=== PATIENT | female | born 1955 | race Caucasian/White ===

== ENCOUNTER 2021-02-23 07:50 | Outpatient (CLI) | payer MEDICAID ==
[2021-02-23 14:51] LABS: BASOPHILS % (AUTO) 0.7 %; EOSINOPHILS # (AUTO) 0.1 10^3/uL (0.0-0.7); EOSINOPHILS % (AUTO) 2.7 %; HCT - HEMATOCRIT 40.7 % (37.0-47.0); HGB - HEMOGLOBIN 13.1 g/dL (12.0-16.0); LYMPHOCYTES # (AUTO) 1.7 10^3/uL (1.5-3.5); LYMPHOCYTES % (AUTO) 41.1 %; MEAN CORPUSCULAR HEMOGLOBIN 29.5 pg (27.0-31.0); MEAN CORPUSCULAR HGB CONC 32.2 g/dL (32.0-36.0); MEAN CORPUSCULAR VOLUME 91.7 fL (81.0-99.0); MEAN PLATELET VOLUME 11.6 fL (7.9-10.8); MONOCYTES # (AUTO) 0.2 10^3/uL (0.0-1.0); MONOCYTES % (AUTO) 5.7 %; NEUTROPHILS % (AUTO) 49.3 %; PLT - PLATELET COUNT 299 10^3/uL (130-450); RED BLOOD COUNT 4.44 10^6/uL (4.20-5.40); RED CELL DISTRIBUTION WIDTH 13.4 % (12.0-15.0)
[2021-02-23 15:15] LABS: THYROID STIMULATING HORMONE 6.56 uIU/mL (0.34-5.60)
[2021-02-23 15:19] LABS: ALBUMIN 4.2 g/dL (3.2-5.5); ALBUMIN/GLOBULIN RATIO 1.3 (1.0-2.2); ALKALINE PHOSPHATASE 82 IU/L (42-121); ALT ALANINE AMINOTRANSFERASE 17 IU/L (10-60); AST ASPARTATE AMINOTRANSFERASE 28 IU/L (10-42); BILIRUBIN,TOTAL 0.7 mg/dL (0.2-1.0); BUN - BLOOD UREA NITROGEN 17 mg/dL (6-20); CALCIUM 9.2 mg/dL (8.5-10.3); CARBON DIOXIDE - CO2 27 mmol/L (21-32); CHLORIDE 103 mmol/L (101-111); CHOL/HDL RATIO 3.2 (<4.4); CHOLESTEROL 235 mg/dL; CREATININE 0.7 mg/dL (0.4-1.0); GFR - MDRD 84 (>89); GLUCOSE 103 mg/dL (70-100); HDL CHOLESTEROL 73 mg/dL; LDL CHOLESTEROL,CALCULATED 148 mg/dL; POTASSIUM 4.2 mmol/L (3.5-5.0); SODIUM 138 mmol/L (135-145); TOTAL PROTEIN 7.4 g/dL (6.7-8.2); TRIGLYCERIDES 72 mg/dL; VLDL CHOLESTEROL 14 mg/dL
[2021-02-23 15:52] LABS: FREE T4 (FREE THYROXINE) 0.68 ng/dL (0.58-1.64)
== END 2021-02-23 07:51 | disposition home or self-care (01) ==
LOC: LAB.S 07:50
PROVIDERS: ATTEND Registered Nurse
DX: Z00.00 Encounter for general adult medical examination without abnormal findings (principal); Z13.228 Encounter for screening for other metabolic disorders; Z13.220 Encounter for screening for lipoid disorders; Z13.29 Encounter for screening for other suspected endocrine disorder; Z13.0 Encounter for screening for diseases of the blood and blood-forming organs and certain disorders involving the immune mechanism
CPT/HCPCS: 36415; 80050; 80061; 83721; 84439; 86803

== ENCOUNTER 2021-02-24 08:00 | Outpatient (CLI) | payer MEDICAID ==
[2021-02-24 11:33] LABS: FECAL OCCULT BLOOD (FIT) NEGATIVE (NEGATIVE)
== END 2021-02-24 23:59 | disposition home or self-care (01) ==
LOC: LAB.S 08:00
PROVIDERS: ATTEND Registered Nurse
DX: Z12.11 Encounter for screening for malignant neoplasm of colon (principal)
CPT/HCPCS: 82274

== ENCOUNTER 2021-04-18 07:59 | Day surgery (SDC) | payer MEDICAID ==
[2021-04-18] MEDS ORDERED: LACTATED RINGERS 1,000 ML IV ONE ×2 (08:36→12:16)
[2021-04-18] MEDS ORDERED: LIDOCAINE 2%-EPI 1:100000 20 ML MDV ONE (09:59)
[2021-04-18] MEDS ORDERED: BUPIVACAINE 0.5% PF 10 ML VIAL ONE (09:59)
[2021-04-18] MEDS ORDERED: LIDOCAINE-MPF 2% 5 ML VIAL ONE (10:03)
[2021-04-18] MEDS ORDERED: PROPOFOL 200 MG/20 ML VIAL IVP ONE (10:03)
[2021-04-18] MEDS ORDERED: fentaNYL 100 MCG/2 ML VIAL ONE ×2 (10:04→11:35)
[2021-04-18] MEDS ORDERED: ONDANSETRON 4 MG/2 ML VIAL ONE (10:04)
[2021-04-18] MEDS ORDERED: KETOROLAC 30 MG/ML VIAL ONE (10:04)
[2021-04-18] MEDS ORDERED: DEXAMETHASONE 4 MG/ML VIAL ONE (10:04)
[2021-04-18] MEDS ORDERED: METOCLOPRAMIDE 10 MG/2 ML VIAL IVP PRN (10:31)
[2021-04-18] MEDS ORDERED: ATROPINE ABBOJECT 1 MG/10 ML SYRINGE IVP PRN (10:31)
[2021-04-18] MEDS ORDERED: MORPHINE 2 MG/ML CARPUJECT IVP PRN (10:31)
[2021-04-18] MEDS ORDERED: ePHEDrine 50 MG/ML VIAL IVP PRN (10:31)
[2021-04-18] MEDS ORDERED: NALOXONE 0.4 MG/ML VIAL IVP PRN (10:31)
[2021-04-18] MEDS ORDERED: ONDANSETRON 4 MG/2 ML VIAL IVP PRN ×2 (10:31→12:21)
[2021-04-18] MEDS ORDERED: fentaNYL 100 MCG/2 ML VIAL IVP PRN (10:31)
--- NOTE | 2021-04-18 10:35 | ANESTHESIA ---
Pre-Anesthesia VS, & Labs - Diagnosis left breast DCIS - Procedure Left skin sparing mastectomy Vital Signs: Temp Pulse Resp BP Pulse Ox 36.4 C L 79 12 135/87 H 97 04/18/21 08:15 04/18/21 08:15 04/18/21 08:15 04/18/21 08:15 04/18/21 08:15 Height: 5 ft 2 in Weight (kg): 64.3 kg Body Mass Index: 25.9 BMI Classification: Overweight - NPO >8 hours - Is Patient ?: No - Lab Results Lab results reviewed: Yes Home Medications and Allergies Home Medications: Ambulatory Orders Cholecalciferol (Vitamin D3) [Vitamin D3] 50 mcg PO DAILY 04/14/21 Multivitamin 1 tab PO DAILY 04/14/21 Active Medications Atropine Sulfate (Atropine Abboject 1 Mg/10 Ml Syringe) 0.5 mg IVP Q5M PRN PRN Reason: Bradycardia Stop: 04/19/21 10:32 Ephedrine Sulfate (Ephedrine 50 Mg/Ml Vial) 10 mg IVP Q5M PRN PRN Reason: HYPOTENSION Stop: 04/19/21 10:32 Fentanyl (Fentanyl 100 Mcg/2 Ml Vial) 25 - 50 mcg IVP Q5M PRN PRN Reason: BREAKTHROUGH PAIN (2nd Choice) Stop: 04/19/21 10:32 Hydromorphone HCl (Hydromorphone 0.5 Mg/0.5 Ml Syringe) 0.2 - 0.6 mg IVP Q5M PRN PRN Reason: PAIN (First Choice) Stop: 04/19/21 10:32 Lactated Ringer's (Lr) 1,000 mls @ 100 mls/hr IV .Q10H KARO Stop: 04/18/21 20:59 Metoclopramide HCl (Metoclopramide 10 Mg/2 Ml Vial) 10 mg IVP Q6HR PRN PRN Reason: N/V not relieved by Zofran Morphine Sulfate (Morphine 2 Mg/Ml Carpuject) 2 - 4 mg IVP Q5M PRN PRN Reason: PAIN (3rd Choice) Stop: 04/19/21 10:32 Naloxone HCl (Naloxone 0.4 Mg/Ml Vial) 0.1 mg IVP Q2M PRN PRN Reason: RESP RATE <8 Stop: 04/19/21 10:32 Ondansetron HCl (Ondansetron 4 Mg/2 Ml Vial) 4 mg IVP ONCE PRN PRN Reason: N/V (First Choice) Stop: 04/19/21 10:32 Scopolamine HBr (Scopolamine Patch) 1 patch TOP Q3D [facility] Cholecalciferol (Vitamin D3) [Vitamin D3] 50 mcg PO DAILY 04/14/21 Multivitamin 1 tab PO DAILY 04/14/21 Allergies/Adverse Reactions: Allergies Allergy/AdvReac Type Severity Reaction Status Date / Time aspirin AdvReac Hives Verified 04/14/21 10:50 Penicillins AdvReac Hives Verified 04/14/21 10:50 Anes History & Medical History - Anesthetic History Anesthesia Complications: reports: No previous complications Family history of Anesthesia Complications: Denies Family history of Malignant Hyperthermia: Denies - Medical History Cardiovascular: reports: None Pulmonary: reports: None Gastrointestinal: reports: None Urinary: reports: None Musculoskeletal: reports: None Endocrine/Autoimmune: reports: None Skin: reports: Rosacea Smoking Status: Never smoker - Surgical History General: reports: Colonoscopy Gynecologic: reports: section Orthopedic: reports: Carpal Tunnel surgery Exam General: Alert, Oriented x3, Cooperative, Mild distress (tearful) Dental: WNL Mouth Openin Fingerbreadth Neck Mobility: Normal Mallampati classification: II Plan Anesthesia Type: General Consent for Procedure(s) Verified and Reviewed: Yes Code Status: Attempt Resuscitation ASA classification: 2-Mild systemic disease Is this case an emergency?: No
[2021-04-18] MEDS ORDERED: SCOPOLAMINE PATCH TOP ONE (10:41)
[2021-04-18] MEDS ORDERED: MIDAZOLAM 2 MG/2 ML VIAL ONE (10:45)
--- NOTE | 2021-04-18 10:54 | Nuclear Medicine Report ---
PROCEDURE: Lymph Node Scintigraphy INDICATIONS: LEFT BREAST CA RADIOPHARMACEUTICAL: 0.5-1.0 mCi Millipore filtered Tc-99m sulfur colloid. TECHNIQUE: The area around the nipple was prepped and draped in a sterile fashion. Tc-99m sulfur colloid was in jected intra-dermally in the outer edge of the areola in the left breast. Images were obtained subse quently. A body contour outline was obtained. FINDINGS: There are a couple of lymph nodes in the ipsilateral axilla, which is marked on the skin and the imag es for referring physician. IMPRESSION: A couple of sentinel lymph nodes are identified in the left axilla. Reviewed by: Odilia Renee MD on 04/18/2021 10:53 AM PST Approved by: Odilia Renee MD on 04/18/2021 10:53 AM PST Station ID: [id number]
[2021-04-18] MEDS ORDERED: SCOPOLAMINE PATCH TOP SCH (11:00)
[2021-04-18] MEDS ORDERED: LACTATED RINGERS 1,000 ML IV SCH (11:00)
[2021-04-18] MEDS ORDERED: ceFAZolin 1 GM VIAL ONE (11:07)
[2021-04-18] MEDS ORDERED: BUPIVACAINE 0.5% PF 10 ML VIAL SUBQ ONE (11:10)
[2021-04-18] MEDS ORDERED: LIDOCAINE 1%-EPI 1:100000 20 ML MDV SUBQ ONE (11:11)
[2021-04-18] MEDS ORDERED: ePHEDrine 50 MG/ML VIAL IVP ONE (11:48)
--- NOTE | 2021-04-18 12:18 | OPERATIVE REPORT ---
Operative Report - General Procedure Date: 04/18/21 Planned Procedure: Left total mastectomy and sentinel node biopsy Pre-Op Diagnosis: Left breast DCIS Procedure Performed: Left breast total mastectomy and sentinel node biopsy Post Op Diagnosis: Left breast DCIS - Procedure Note Primary Surgeon: Celso Anesthesia Provider: SYLVESTER Dewey Anesthesia Technique: General LMA Pathology: 1. [place] node - 10 sec count [id number], background in axilla 21, background in room 0 2. Left breast with short stitch superior and long stitch lateral Estimated Blood Loss (mL): 150 Drain/Tube Type: Wero drain (19F in the inframmary pocket) Indications: 11 cm left breast DCIS Findings: A single sentinel node Venous congestion of the skin of the breast Complications: None apparent - Other Other Information/Narrative: After obtaining informed consent, the patient was brought to the operating room and placed in the supine position on the operating table. Following successful induction of general endotracheal anesthesia, appropriate padding of all bony prominences, and placement of appropriate monitors, the left breast was prepped and draped in the standard surgical fashion. A timeout was held per scope protocol. All elements of the surgical safety checklist were followed before, during, and after the procedure. We began the procedure with a sentinel node dissection. The neoprobe was used to identify the site of greatest uptake at level 2 in the patient's left axilla. An incision was created over this area of uptake and carried through the skin and subcutaneous tissue to enter the axillary node packet. The sentinel node was identified. It was noted to be grossly normal in appearance. It was carefully dissected free from surrounding structures sharply. All lymphatics and vasculature were addressed with clips prior to division. The node was liberated into the field. 10-second counts are recorded. Survey of the axilla did not identify any additional targets and this is consistent with nuclear medicine images. Background in the axilla was checked and found to be 21-27. Background in the room was 0. We turned our attention to the breast and began the procedure by infiltrating half percent Marcaine plain mixed 1/2 and 1/2 with 2% lidoaine with epinephrine in the subareolare region. An incision was fashioned to include the skin of the nipple only. This incision was then completed with a 10 blade scalpel. It was carried through the skin and subcutaneous tissue. Traction and countertraction were then used to divide the underlying breast tissue from the overlying dermis from the level of the incision to the clavicle superiorly medially to the sternum inferiorly to the inframammary fold and lateral to the posterior axillary line. Once a circumferential dissection had been obtained, the breast was removed in a medial to lateral fashion. All perforators were addressed with sutures or with cautery prior to division. The breast was then marked with a short stitch superior and a long stitch lateral. The wound was irrigated with warm water and aspirated free of all fluid and particulate m atter. It was checked once again for hemostasis and touched up in just a couple of places with cautery. A 19 Cuban Wero drain was placed in the inframammary pocket and brought out inferior medially. It was sewn into place. The skin edges were then closed in an interrupted fashion with Vicryl suture and vicryl clips applied to the subcutaneous tissue. A Proveena dressing was applied. All sponge, needle, instrument counts were correct at the conclusion the case. The patient was let awake from anesthesia without difficulty and taken to the postanesthesia care unit in good condition.
[2021-04-18] MEDS ORDERED: ACETAMINOPHEN 325 MG TABLET PO PRN (12:21)
[2021-04-18] MEDS ORDERED: IBUPROFEN 600 MG TABLET PO PRN (12:21)
[2021-04-18] MEDS ORDERED: oxyCODONE 5 MG TABLET PO PRN (12:21)
[2021-04-18] MEDS: HYDROmorphone 0.5 MG/0.5 ML SYRINGE IVP PRN ×2 (12:45→12:52)
--- NOTE | 2021-04-18 13:05 | ANESTHESIA POST OP EVALUATION ---
Anesthesia Post Eval - Post Anesthesia Eval Vitals: Last Vital Signs Temp 36.2 C L 04/18/21 13:00 Pulse 90 04/18/21 13:00 Resp 15 04/18/21 13:00 BP 117/72 04/18/21 13:00 Pulse Ox 99 04/18/21 13:00 CV Function Including HR & BP: Stable Pain Control: Satisfactory Nausea & Vomiting: Negative Mental Status: Baseline Respiratory Status: Airway Patent Hydration Status: Satisfactory Anesthesia Complications: None
[2021-04-18 15:06] VITALS: BP 139/86
== END 2021-04-18 08:00 | disposition home or self-care (01) ==
LOC: DI 07:59
PROVIDERS: ATTEND Surgery
PROC: 07B60ZX Excision of Left Axillary Lymphatic, Open Approach, Diagnostic (ICD-10-PCS; 2021-04-18)
PROC: 0HTU0ZZ Resection of Left Breast, Open Approach (ICD-10-PCS; principal; 2021-04-18 10:00)
DX: D05.12 Intraductal carcinoma in situ of left breast (principal)
CPT/HCPCS: 78195

== ENCOUNTER 2022-04-11 11:51 | Outpatient (CLI) | payer MEDICARE, MEDICAID ==
--- NOTE | 2022-04-11 16:05 | XRAY Report ---
PROCEDURE: Chest 2 View X-Ray INDICATIONS: BRONCHITIS TECHNIQUE: 2 views of the chest were acquired. COMPARISON: None. FINDINGS: Surgical changes and devices: None. Lungs and pleura: No pleural effusions or pneumothorax. Lungs are clear. Mediastinum: Mediastinal contours are normal. Heart size is normal. Bones and chest wall: No suspicious bony abnormalities. Soft tissues appear unremarkable. IMPRESSION: No acute cardiopulmonary disease process. Reviewed by: Lona Stafford MD, PhD on 04/11/2022 4:04 PM [facility] Approved by: Lona Stafford MD, PhD on 04/11/2022 4:04 PM [facility] Station ID: [id number]
== END 2022-04-11 11:52 | disposition home or self-care (01) ==
LOC: DI.S 11:51
PROVIDERS: ATTEND Physician Assistant Medical
DX: J20.9 Acute bronchitis, unspecified (principal)

== ENCOUNTER 2022-09-27 08:01 | Outpatient (CLI) | payer MEDICARE, MEDICAID ==
--- NOTE | 2022-10-09 12:00 | Mammography Report ---
UNILATERAL RIGHT DIGITAL SCREENING MAMMOGRAM 3D/2D: 09/27/2022 CLINICAL: Routine screening. Personal history of left breast cancer. Comparison is made to exams dated: 03/07/2021 breast MRI - [facility], 02/08/2021 stereotactic bi opsy, 02/08/2021 stereotactic biopsy, 01/26/2021 mammogram, 01/12/2021 mammogram - [facility] [place], and 12/08/2011 mammogram - [place]. There are scattered areas of fibroglandular density in the right breast (category b / 25%-50% glandul ar tissue). There is a cluster of focal asymmetries in the right breast at 11 o'clock posterior depth. No other significant masses or calcifications are seen in the breast. IMPRESSION: INCOMPLETE: NEEDS ADDITIONAL IMAGING EVALUATION The cluster of focal asymmetries in the right breast is indeterminate. Additional views with possibl e ultrasound are recommended. This exam was interpreted at Station ID: [id number]. NOTE: For mammograms, a report in lay terms will be sent to the patient. Approximately 15% of breast malignancies will not be visualized mammographically. In the management of a palpable breast mass, a negative mammogram must not discourage biopsy of a clinically suspicious lesion. Electronically Signed By: Costa Stewart M.D. lc/:10/06/2022 12:00:44 ACR BI-RADS Category 0: Incomplete 3340F PARENCHYMAL PATTERN: (A) - The breast(s) demonstrate(s) scattered fibroglandular densities. BI-RADS CATEGORY: (0) - 0 Mammo and [place] [id number] Immediate follow-up LATERALITY: (B)
== END 2022-09-27 08:02 | disposition home or self-care (01) ==
LOC: DI 08:01
PROVIDERS: ATTEND Nurse Practitioner Acute Care
DX: Z12.31 Encounter for screening mammogram for malignant neoplasm of breast (principal); Z85.3 Personal history of malignant neoplasm of breast; R92.8 Other abnormal and inconclusive findings on diagnostic imaging of breast

== ENCOUNTER 2022-11-01 08:07 | Outpatient (CLI) | payer MEDICARE, MEDICAID ==
--- NOTE | 2022-11-02 11:46 | Mammography Report ---
UNILATERAL RIGHT DIGITAL DIAGNOSTIC MAMMOGRAM 3D/2D WITH SPOT COMPRESSION: 11/01/2022 CLINICAL: Patient returns today to evaluate a focal asymmetry in the right breast. Comparison is made to exams dated: 09/27/2022 mammogram - [facility], 03/07/2021 [facility], 02/08/2021 stereotactic biopsy, and 01/26/2021 mammogram - [facility]. There are scattered areas of fibroglandular density in the right breast (category b / 25%-50% glandul ar tissue). There is a cluster of focal asymmetries in the right breast at 10 o'clock middle depth. No other significant masses or calcifications are seen in the breast. IMPRESSION: INCOMPLETE: NEEDS ADDITIONAL IMAGING EVALUATION The cluster of focal asymmetries in the right breast is indeterminate. A targeted ultrasound is recommended and will immediately follow. This exam was interpreted at Station ID: [id number]. NOTE: For mammograms, a report in lay terms will be sent to the patient. Approximately 15% of breast malignancies will not be visualized mammographically. In the management of a palpable breast mass, a negative mammogram must not discourage biopsy of a clinically suspicious lesion. Electronically Signed By: Terrance Foote M.D. slc/:11/01/2022 09:45:02 ACR BI-RADS Category 0: Incomplete 3340F PARENCHYMAL PATTERN: (A) - The breast(s) demonstrate(s) scattered fibroglandular densities. BI-RADS CATEGORY: (0) - 0 Ultrasound [id number] Immediate follow-up LATERALITY: (B)
--- NOTE | 2022-11-02 11:47 | Ultrasound Report ---
LIMITED ULTRASOUND OF RIGHT BREAST AND AXILLA: 11/01/2022 CLINICAL: Patient returns today to evaluate a focal asymmetry in the right breast. Comparison is made to exams dated: 11/01/2022 mammogram, 09/27/2022 mammogram - [facility], 03/07/2021 breast MRI - [facility], 01/12/2021 mammogram - [facility], and 12/07 mammogram - [place]. Color flow and real-time ultrasound of the right breast 10 o'clock, and axilla regions were performed . Ingram scale images of the real-time examination were reviewed. There is a 0.5 cm x 0.5 cm x 0.4 cm oval mass with a microlobulated margin in the right breast at 10 o'clock middle depth 6 cm from the nipple. This oval mass is hypoechoic. This correlates with mammo graphy findings. Color flow imaging demonstrates that there is an adjacent vascularity. There also is a 0.8 cm x 0.7 cm x 0.3 cm oval cyst in the right breast at 10 o'clock posterior depth 6 cm from the nipple. This oval cyst is anechoic with internal echoes and posterior acoustic enhance ment. This correlates with mammography findings. Color flow imaging demonstrates that there is no v ascularity present. No significant abnormalities were seen sonographically in the right axilla. IMPRESSION: SUSPICIOUS OF MALIGNANCY The 0.5 cm x 0.5 cm x 0.4 cm oval mass in the right breast at 10 o'clock middle depth is at a low danny picion for malignancy. -An ultrasound guided biopsy is recommended. The 0.8 cm oval cyst in the right breast at 10 o'clock posterior depth is consistent with a complicat ed cyst and is probably benign. -A follow-up ultrasound in 6 months is recommended. No enlarged right axillary lymph nodes. Preliminary Exam findings were discussed with the patient by Dr. Rod. This exam was interpreted at Station ID: [id number]. Electronically Signed By: Terrance Foote M.D. slc/:11/01/2022 09:52:34 Ultrasound BI-RADS: 4a Low suspicion for malignancy BI-RADS CATEGORY: (4a) - Low Susp Biopsy [id number] Immediate follow-up LATERALITY: (R)
== END 2022-11-01 08:08 | disposition home or self-care (01) ==
LOC: DI 08:07
PROVIDERS: ATTEND Nurse Practitioner Acute Care
DX: N63.11 Unspecified lump in the right breast, upper outer quadrant (principal); N60.01 Solitary cyst of right breast

== ENCOUNTER 2022-11-21 11:42 | Outpatient (CLI) | payer MEDICARE, MEDICAID ==
[~2022-11-21 11:42] MED LIST: LIDOCAINE-MPF 1% 5 ML VIAL ONE
[2022-11-21] MEDS ORDERED: LIDOCAINE-MPF 1% 5 ML VIAL TD ONE (13:47)
--- NOTE | 2022-11-22 12:31 | Mammography Report ---
UNILATERAL RIGHT DIGITAL DIAGNOSTIC MAMMOGRAM POST-PROCEDURE IMAGING FOR MARKER PLACEMENT: 11/21/2022 CLINICAL: Post right breast ultrasound biopsy clip placement imaging. Comparison is made to exams dated: 11/21/2022 ultrasound biopsy, 11/01/2022 ultrasound, and 11/01/2022 mammogram - [facility]. There are scattered areas of fibroglandular density in the right breast (category b / 25%-50% glandul ar tissue). There is a marker clip in the appropriate position in the right breast at 10 o'clock middle depth. IMPRESSION: POST PROCEDURE MAMMOGRAM FOR MARKER PLACEMENT There was a successful marker clip placement in the right breast middle depth. This exam was interpreted at Station ID: [id number]. NOTE: For mammograms, a report in lay terms will be sent to the patient. Approximately 15% of breast malignancies will not be visualized mammographically. In the management of a palpable breast mass, a negative mammogram must not discourage biopsy of a clinically suspicious lesion. Electronically Signed By: Costa Stewart M.D. lc/:11/21/2022 14:25:54 ACR BI-RADS Category Post-procedure mammogram for marker placement PARENCHYMAL PATTERN: (A) - The breast(s) demonstrate(s) scattered fibroglandular densities. BI-RADS CATEGORY: () - Unspecified - other recall n/a LATERALITY: (B)
--- NOTE | 2022-11-24 12:05 | Ultrasound Report ---
ULTRASOUND GUIDED BIOPSY RIGHT BREAST USING VACUUM DEVICE WITH MARKING DEVICE INSERTED: 11/21/2022 CLINICAL: Right breast mass. PATIENT CONSENT: Risks (minor bleeding, infection, vasovagal reaction and repeat procedure), benefits and alternatives were explained to the patient and written informed consent was obtained. Correlation is made to exams dated: 11/01/2022 ultrasound, 11/01/2022 mammogram, 09/27/2022 mammogram - [facility], 03/07/2021 breast MRI - [facility], [place] [facility] [place]. An ultrasound guided biopsy using real-time ultrasound was performed for the concerning 0.5 cm x 0.5 cm x 0.4 cm mass located in the right breast at 10 o'clock middle depth 6 cm from the nipple. This w as described on the previous ultrasound report. The skin was prepped in the usual manner. Local ane sthetic was administered to the access site. A skin maría was made in the breast. A 13 gauge biopsy needle was placed adjacent to the abnormality under ultrasound guidance. Once the needle was documen mg to be in the correct location, four specimens were obtained using the Mammotome biopsy system. A clip was inserted into the biopsy cavity. Post procedure imaging demonstrates the location device a t the targeted area. The specimens were sent to the laboratory for pathological analysis. IMPRESSION: ULTRASOUND GUIDED BIOPSY MALIGNANT Ultrasound guided biopsy of the 0.5 cm x 0.5 cm x 0.4 cm mass in the right breast at 10 o'clock middl e depth 6 cm from the nipple was successful. Pathology indicates malignant invasive ductal carcinoma (ID). Pathology results are concordant with imaging findings. Recommend surgical/oncologic followup. Please note multiple focal asymmetries were noted on mammogram and only one definitely solid finding of a mass was identified on ultrasound and biopsied. In this clinical context, please consider an ext ent of disease MRI. This exam was interpreted at Station ID: [id number]. Costa Stewart M.D. lc/:11/24/2022 10:46:00 BI-RADS CATEGORY: () - Unspecified - other recall n/a LATERALITY: (B)
== END 2022-11-21 11:43 | disposition home or self-care (01) ==
LOC: DI 11:42
PROVIDERS: ATTEND Nurse Practitioner Acute Care
DX: C50.411 Malignant neoplasm of upper-outer quadrant of right female breast (principal); Z17.0 Estrogen receptor positive status [ER+]
CPT/HCPCS: 19083

== ENCOUNTER 2022-12-25 09:25 | Outpatient (CLI) | payer MEDICARE, MEDICAID ==
--- NOTE | 2022-12-26 13:06 | Ultrasound Report ---
LIMITED SECONDLOOK ULTRASOUND OF RIGHT BREAST AND AXILLA: 12/25/2022 CLINICAL: Pt. returns today for MRI 2nd look right breast. Comparison is made to exams dated: 12/14/2022 breast MRI - [facility], 11/21/2022 ultrasound biopsy , 11/21/2022 mammogram, 11/01/2022 ultrasound, and 11/01/2022 mammogram - [facility]. Color flow ultrasound of the right breast 10-11 o'clock, and axilla regions was performed. Ingram scal e images of the real-time examination were reviewed. Biopsy proven malignancy with biopsy clip at site is seen at 10 o'clock, 6 cm from the nipple. There is again seen an adjacent 8 mm mass just posterior, which is un-biopsied. There is an additional rhiannon cent oval, circumscribed mass measuring up to 4 mm, which likely corresponds to 3rd mass seen on rece nt MRI. No sonographic correlate is identified for focus of enhancement seen on MRI at 11 o'clock posterior d epth near the pectoralis. No morphologically abnormal lymph nodes are visualized in the right axilla. IMPRESSION: SUSPICIOUS OF MALIGNANCY 1) No sonographic correlate for enhancing focus seen on recent MRI at 11 o'clock posterior depth. MRI finding remains suspicious and MRI guided core biopsy is recommended. 2) Biopsy proven malignancy at 10 o'clock with biopsy clip at site. Two close adjacent un-biopsied ma sses are visualized on US and MRI. 3) No morphologically abnormal right axillary lymph nodes. Recommend management per multidisciplinary team. Findings and recommendations were conveyed to the patient during today's evaluation. This exam was interpreted at Station ID: [id number]. Electronically Signed By: Lay Taylor M.D. esb/:12/25/2022 15:16:41 Ultrasound BI-RADS: 4 Suspicious for malignancy BI-RADS CATEGORY: (4) - 4 Unspecified - other recall n/a LATERALITY: (B)
== END 2022-12-25 09:26 | disposition home or self-care (01) ==
LOC: DI 09:25
PROVIDERS: ATTEND Surgery
DX: C50.911 Malignant neoplasm of unspecified site of right female breast (principal); N63.11 Unspecified lump in the right breast, upper outer quadrant

== ENCOUNTER 2023-01-24 08:07 | Day surgery (SDC) | payer MEDICARE, MEDICAID ==
[2023-01-24] MEDS ORDERED: ACETAMINOPHEN 500 MG TABLET PO ONE (08:23)
[2023-01-24] MEDS ORDERED: ceFAZolin 2 GM VIAL ONE (08:23)
[2023-01-24] MEDS ORDERED: LACTATED RINGERS 1,000 ML IV ONE (08:31)
[2023-01-24] MEDS ORDERED: ALPRAZolam 0.25 MG TABLET PO ONE (08:35)
[2023-01-24] MEDS ORDERED: LIDOCAINE-MPF 1% 5 ML VIAL TD ONE (10:15)
[2023-01-24] MEDS ORDERED: LIDOCAINE 1%-EPI 1:100000 20 ML MDV ONE (12:32)
[2023-01-24] MEDS ORDERED: BUPIVACAINE 0.5% PF 10 ML VIAL ONE (12:32)
[2023-01-24] MEDS ORDERED: fentaNYL 100 MCG/2 ML VIAL ONE ×3 (12:45→15:39)
[2023-01-24] MEDS ORDERED: MIDAZOLAM 2 MG/2 ML VIAL ONE (12:45)
[2023-01-24] MEDS ORDERED: KETOROLAC 30 MG/ML VIAL ONE (12:48)
[2023-01-24] MEDS ORDERED: PROPOFOL 200 MG/20 ML VIAL IVP ONE (12:48)
[2023-01-24] MEDS ORDERED: ONDANSETRON 4 MG/2 ML VIAL ONE (12:48)
[2023-01-24] MEDS ORDERED: LIDOCAINE-PF 2% 10 ML AMP SUBQ ONE (12:48)
[2023-01-24] MEDS ORDERED: BUPIVACAINE 0.5% PF 10 ML VIAL SUBQ ONE ×2 (13:10)
[2023-01-24] MEDS ORDERED: LIDOCAINE 1%-EPI 1:100000 20 ML MDV SUBQ ONE ×2 (13:11)
[2023-01-24] MEDS ORDERED: ATROPINE ABBOJECT 1 MG/10 ML SYRINGE IVP PRN (13:29)
[2023-01-24] MEDS ORDERED: fentaNYL 100 MCG/2 ML VIAL IVP PRN (13:29)
[2023-01-24] MEDS ORDERED: ePHEDrine 50 MG/ML VIAL IVP PRN (13:29)
[2023-01-24] MEDS ORDERED: METOCLOPRAMIDE 10 MG/2 ML VIAL IVP PRN (13:29)
[2023-01-24] MEDS ORDERED: NALOXONE 0.4 MG/ML VIAL IVP PRN (13:29)
[2023-01-24] MEDS ORDERED: HYDROmorphone 0.5 MG/0.5 ML SYRINGE IVP PRN ×2 (13:29→15:26)
[2023-01-24] MEDS ORDERED: ONDANSETRON 4 MG/2 ML VIAL IVP PRN ×2 (13:29→15:26)
[2023-01-24] MEDS ORDERED: MORPHINE 2 MG/ML CARPUJECT IVP PRN (13:29)
--- NOTE | 2023-01-24 13:29 | ANESTHESIA ---
Pre-Anesthesia VS, & Labs - Diagnosis R breast CA - Procedure R breast lumpectomy Vital Signs: Temp Pulse Resp BP Pulse Ox O2 Flow Rate 36.6 C 77 18 122/81 H 96 0 01/24/23 08:33 01/24/23 08:33 01/24/23 08:33 01/24/23 08:33 01/24/23 08:33 01/24/23 08:33 Height: 5 ft 2 in Weight (kg): 69.4 kg Body Mass Index: 28.0 BMI Classification: Overweight - NPO >8 hours - Is Patient ?: No Home Medications and Allergies Home Medications: Ambulatory Orders Acetaminophen [Tylenol] 500 mg PO PRN PRN 01/15/23 Ascorbic Acid [Vitamin C] 1,000 mg PO DAILY PRN 01/15/23 Calcium Carbonate [Calcium] 600 mg PO DAILY 01/15/23 Ibuprofen 200 mg PO PRN PRN 01/15/23 Multivitamin 1 each PO DAILY 01/15/23 Cholecalciferol (Vitamin D3) [Vitamin D3] 50 mcg PO BID 04/14/21 Acetaminophen [Tylenol] 500 mg PO PRN PRN 01/15/23 Ascorbic Acid [Vitamin C] 1,000 mg PO DAILY PRN 01/15/23 Calcium Carbonate [Calcium] 600 mg PO DAILY 01/15/23 Ibuprofen 200 mg PO PRN PRN 01/15/23 Multivitamin 1 each PO DAILY 01/15/23 Allergies/Adverse Reactions: Allergies Allergy/AdvReac Type Severity Reaction Status Date / Time bee venom protein (honey bee) Allergy Hives Verified 01/24/23 08:41 aspirin AdvReac Hives Verified 01/24/23 08:41 Penicillins AdvReac Hives Verified 01/24/23 08:41 tegaderm Allergy Rash Uncoded 01/24/23 08:41 Anes History & Medical History - Anesthetic History Anesthesia Complications: reports: No previous complications Family history of Anesthesia Complications: Denies Family history of Malignant Hyperthermia: Denies - Medical History Cardiovascular: reports: None Pulmonary: reports: None Gastrointestinal: reports: None Urinary: reports: None Musculoskeletal: reports: None Endocrine/Autoimmune: reports: None Skin: reports: Rosacea Smoking Status: Never smoker History of Cancer?: Yes - Surgical History General: reports: Colonoscopy Gynecologic: reports: section, Mastectomy Orthopedic: reports: Carpal Tunnel surgery Exam General: Alert, Oriented x3 Dental: WNL Mouth Openin Fingerbreadth Neck Mobility: Normal Mallampati classification: II Thyromental Distance: 4-6 cm Respiratory: Lungs clear Cardiovascular: Regular rate Plan Anesthesia Type: General Consent for Procedure(s) Verified and Reviewed: Yes Code Status: Attempt Resuscitation ASA classification: 3-Severe systemic disease Is this case an emergency?: No
[2023-01-24] MEDS ORDERED: LACTATED RINGERS 1,000 ML IV SCH (14:00)
[2023-01-24] MEDS ORDERED: ePHEDrine 50 MG/ML VIAL IVP ONE (14:50)
[2023-01-24] MEDS ORDERED: LACTATED RINGERS 500 ML IV ONE ×2 (15:25)
[2023-01-24] MEDS ORDERED: oxyCODONE 5 MG TABLET PO PRN (15:26)
[2023-01-24] MEDS ORDERED: IBUPROFEN 600 MG TABLET PO PRN (15:26)
[2023-01-24] MEDS ORDERED: ACETAMINOPHEN 325 MG TABLET PO PRN (15:26)
--- NOTE | 2023-01-24 15:33 | OPERATIVE REPORT ---
Operative Report - General Procedure Date: 01/24/23 Planned Procedure: right lumpectomy with wire localization and sentinel lymph node biopsy Pre-Op Diagnosis: invasive ductal carcinoma Procedure Performed: right lumpectomy with wire localization and sentinel lymph node biopsy Post Op Diagnosis: right lumpectomy with wire localization and sentinel lymph node biopsy - Procedure Note Primary Surgeon: Dr. Mae Zepeda Anesthesia Provider: Marisol Morrow CRNA Anesthesia Technique: General LMA, Local Pathology: 1. right lumpectomy (short superior, long lateral, double anterior) 2. re excision of medial posterior margin (short superior, long lateral, double anterior) 3. Peyton lymph node #1, 511 4. Peyton lymph node #2, 20 5. Peyton lymph node #3, 11 6. Peyton lymph node #4, 25 7. Peyton lymph node #5, 67 Estimated Blood Loss (mL): 50 Indications: Patient found to have abnormal mammogram on imaging. Follow up biopsy revealed invasive ductal carcinoma. She had a second area which appeared to be a benign cyst, and posterior to this, on her MRI, a third lesion was identified and then biopsied. This was a benign lymph node. The patient was seen and evaluated in clinic. She is also planning a lift/reduction on the right. She will wait to do this until her cancer surgery is complete, but would like to do it prior to radiation. She was offered lumpectomy or mastectomy and elected for lumpectomy with sentinel lymph node biopsy. Wire localization is needed since I could not palpate the area of concern. We discussed the risks, benefits, and alternatives of surgery including bleeding, infection, damage to surrounding structures, positive margin requiring re excision, and the possible need for further surgery or procedures. The patient voiced understanding, her questions were answered, and she wished to proceed. Findings: 1. palpable hematoma with significant surrounding inflammation hindering the utility of palpation of the posterior aspect of the lumpectomy cavity 2. clip and mass in first specimen but close to posterior, medial margin (this margin was re excised) 3. small, shotty lymph nodes Complications: none - Other Other Information/Narrative: The patient was taken to the operating room and placed in the supine position. Preop antibiotics were given. ERAS medications were given. The patient was prepped and draped in the usual sterile fashion. A preop surgical timeout was performed. Attention was turned to the patient's right breast. An incision was made which incorporated the wire, following the patient's skin folds, at the 10 o'clock position, N + 5. Skin flaps were raised superiorly and inferiorly to the incision. The dissection was carried down to the thick part of the wire using electrocautery. At this point, serrated scissors were used to perform a lumpectomy staying approximately 2 cm away from the wire inferiorly, medially, and anteriorly. The lumpectomy specimen was removed and oriented with suture on the back table. The specimen was sent to mammography and the biopsy clip was confirmed to be within the specimen. The specimen was close to the posterior and medial margin. The edges of the lumpectomy cavity were inspected and there posterior aspect demonstrated a hematoma from her previous biopsy, and significant inflammation, hindering the utility of palpation. Because the area of concern was close to the posterior and medial margins of the specimen, I elected to reexcise this margin. Final posterior margin is the chest wall. Hemostasis was confirmed. The lumpectomy cavity was irrigated with warm normal saline. Clips were placed in the superior, inferior, medial, lateral, anterior, and posterior margins of the lumpectomy cavity.The deep dermal tissues were closed with 3-0 Vicryl in an interrupted fashion. The skin was closed with 4-0 Monocryl in a running subcuticular fashion. Attention was then turned to the right axilla. An incision was made just inferior to the hairline at the area of greatest uptake using the neoprobe device. The incision was made using a 15 blade scalpel and carried down through the skin and subcutaneous tissues to the level of the axillary fascia. The fascia was incised. The sentinel lymph nodes were identified using the neoprobe. Clips were used proximally and distally to the nodes and the nodes were removed the first node had a maximal reading of 67 on the back table and was noted to be markedly enlarged. The second sentinel lymph node measured 20 on the back table. A third lymph node measured 25, and the fourth lymph node measured 11, and a fifth sentinel lymph node measured 511. On further inspection, there were no additional lymph nodes that had at least 10% uptake, 51, and no additional abnormal palpable nodes. Hemostasis was confirmed in the axilla. The deep dermal tissues were closed with 3-0 Vicryl. A 4-0 Monocryl running stitch was placed in a subcuticular fashion. Skin glue was placed over both incisions. The patient tolerated the procedure well. There were no complications. Synoptic Breast SNB - Peyton Node Biopsy Operation performed with curative intent: Yes Tracer(s) used to identify sentinel nodes in the upfront surgery (non- neoadjuvant) setting (select all that apply): Radioactive tracer Tracer(s) used to identify sentinel nodes in the neoadjuvant setting (select all that apply): N/A All nodes (colored or non-colored) present at the end of a dye-filled lymphatic channel were removed: N/A All significantly radioactive nodes were removed: Yes All palpably suspicious nodes were removed: N/A Biopsy-proven positive nodes marked with clips prior to chemotherapy were identified and removed: N/A
[2023-01-24] MEDS ORDERED: HYDROmorphone 1 MG/ML CARPUJECT ONE (15:37)
[2023-01-24] MEDS ORDERED: KETOROLAC 15 MG/ML VIAL ONE (15:41)
[2023-01-24 16:20] VITALS: BP 133/79; O2SAT 100
--- NOTE | 2023-01-24 16:54 | ANESTHESIA POST OP EVALUATION ---
Anesthesia Post Eval - Post Anesthesia Eval Vitals: Last Vital Signs Temp 36.0 C L 01/24/23 16:17 Pulse 73 01/24/23 16:17 Resp 16 01/24/23 16:17 BP 133/79 H 01/24/23 16:17 Pulse Ox 100 01/24/23 16:17 O2 Flow Rate 0 01/24/23 08:33 CV Function Including HR & BP: Stable Pain Control: Satisfactory Nausea & Vomiting: Negative Mental Status: Baseline Respiratory Status: Airway Patent Hydration Status: Satisfactory Anesthesia Complications: None
--- NOTE | 2023-01-25 10:40 | Ultrasound Report ---
WIRE LOCALIZATION RIGHT BREAST: 01/24/2023 CLINICAL: Pre op wire localization with ultrasound. Correlation is made to exams dated: 01/24/2023 mammogram - [facility], 01/11/2023 M [facility] biopsy, 01/11/2023 mammogram - [facility], 12/25/2022 ultrasound - [facility], 12/14/2022 breast MRI - [facility], and [facility]. A wire localization was performed for the 0.5 cm x 0.5 cm x 0.4 cm mass located in the right breast a t 10 o'clock middle depth 6 cm from the nipple. The skin was prepped in the usual manner. A wire wa s inserted into the targeted area. IMPRESSION: WIRE LOCALIZATION Wire localization for the 0.5 cm x 0.5 cm x 0.4 cm mass in the right breast at 10 o'clock middle dept h 6 cm from the nipple was successful. This exam was interpreted at Station ID: [id number]. Sharad Genao M.D. crm/:01/24/2023 10:30:43 BI-RADS CATEGORY: () - Unspecified - other recall n/a LATERALITY: (B)
--- NOTE | 2023-01-25 10:40 | Mammography Report ---
UNILATERAL RIGHT DIGITAL DIAGNOSTIC MAMMOGRAM WITH MEDIOLATERAL OBLIQUE: 01/24/2023 CLINICAL: Right breast wire localization. Comparison is made to exams dated: 01/11/2023 MRI biopsy, 01/11/2023 [facility]ogram - [facility], 12/14/2022 breast MRI - [facility], 11/21/2022 ultrasound biopsy, and 11/21/2022 mammogram - [facility]. There are scattered areas of fibroglandular density in the right breast (category b / 25%-50% glandul ar tissue). There is a marker clip in the right breast at 10 o'clock middle depth. There has been placement of a wire at the biopsy clip with the tip of the wire approximately 4 mm past the clip and 2 mm anterior to the clip. IMPRESSION: POST PROCEDURE MAMMOGRAM FOR MARKER PLACEMENT There was a successful wire placement in the right breast middle depth. This exam was interpreted at Station ID: [id number]. NOTE: For mammograms, a report in lay terms will be sent to the patient. Approximately 15% of breast malignancies will not be visualized mammographically. In the management of a palpable breast mass, a negative mammogram must not discourage biopsy of a clinically suspicious lesion. Electronically Signed By: Sharad Genao M.D. crm/:01/24/2023 10:28:40 ACR BI-RADS Category Post-procedure mammogram for marker placement PARENCHYMAL PATTERN: (A) - The breast(s) demonstrate(s) scattered fibroglandular densities. BI-RADS CATEGORY: () - Unspecified - other recall n/a LATERALITY: (B)
--- NOTE | 2023-01-30 10:36 | Mammography Report ---
SPECIMEN: 01/24/2023 CLINICAL: Right breast specimen. Correlation is made to exams dated: 01/24/2023 localization, 01/24/2023 mammogram - [facility], and 01/11/2023 MRI biopsy - [facility]. The specimen contains the tip of the wire, biopsy marker clip in the periphery, and some vascular yahir cifications. IMPRESSION: SPECIMEN The specimen contains the tip of the wire, biopsy marker clip in the periphery, and some vascular ca lcifications. This exam was interpreted at Station ID: [id number]. Costa Stewart M.D. lc/:01/29/2023 15:13:16 BI-RADS CATEGORY: () - Unspecified - other recall n/a LATERALITY: (B)
== END 2023-01-24 08:08 | disposition home or self-care (01) ==
LOC: SDS 08:07
PROVIDERS: ATTEND Surgery
PROC: 07B50ZX Excision of Right Axillary Lymphatic, Open Approach, Diagnostic (ICD-10-PCS; 2023-01-24)
PROC: 0HBT0ZZ Excision of Right Breast, Open Approach (ICD-10-PCS; principal; 2023-01-24 11:15)
DX: D05.11 Intraductal carcinoma in situ of right breast (principal)
CPT/HCPCS: 19285; 19301; 38525; 38792; 76098; 77065; A9270; A9520; J1170; J7120

== ENCOUNTER 2023-11-22 10:01 | Day surgery (SDC) | payer MEDICARE ==
[2023-11-22] MEDS: LACTATED RINGERS 1,000 ML IV ONE ×2 (10:35→12:43)
--- NOTE | 2023-11-22 11:51 | ANESTHESIA ---
Pre-Anesthesia VS, & Labs - Diagnosis hx family colon ca - Procedure colonoscopy Vital Signs: Temp Pulse Resp BP Pulse Ox O2 Flow Rate 36.3 C L 70 12 113/82 H 97 11/22/23 10:42 11/22/23 10:42 11/22/23 10:42 11/22/23 10:42 11/22/23 10:42 Height: 5 ft 1.5 in Weight (kg): 71.1 kg Body Mass Index: 29.1 BMI Classification: Overweight - NPO >8 hours Last Fluid Intake: am prep - Is Patient ?: No - Lab Results Lab results reviewed: Yes Home Medications and Allergies Cholecalciferol (Vitamin D3) [Vitamin D3] 50 mcg PO BID 04/14/21 Acetaminophen [Tylenol] 500 mg PO PRN PRN 01/15/23 Ascorbic Acid [Vitamin C] 1,000 mg PO DAILY PRN 01/15/23 Calcium Carbonate [Calcium] 600 mg PO DAILY 01/15/23 Ibuprofen 200 mg PO PRN PRN 01/15/23 Multivitamin 1 each PO DAILY 01/15/23 Allergies/Adverse Reactions: Allergies Allergy/AdvReac Type Severity Reaction Status Date / Time bee venom protein (honey bee) Allergy Hives Verified 11/22/23 11:20 aspirin AdvReac Hives Verified 11/22/23 11:20 Penicillins AdvReac Hives Verified 11/22/23 11:20 tegaderm Allergy Rash Uncoded 11/22/23 11:20 Anes History & Medical History - Anesthetic History Anesthesia Complications: reports: No previous complications Family history of Anesthesia Complications: Denies Family history of Malignant Hyperthermia: Denies - Medical History Cardiovascular: reports: None Pulmonary: reports: None Gastrointestinal: reports: None Urinary: reports: None Musculoskeletal: reports: None Endocrine/Autoimmune: reports: None Skin: reports: Rosacea Smoking Status: Never smoker Psychosocial: reports: Anxiety History of Cancer?: Yes (breast, radiation complete 3 months ago) - Surgical History General: reports: Colonoscopy Gynecologic: reports: section, Mastectomy, Other Orthopedic: reports: Carpal Tunnel surgery Exam General: Alert, Oriented x3, Cooperative Dental: WNL Mouth Openin Fingerbreadth Neck Mobility: Normal Mallampati classification: II Thyromental Distance: 4-6 cm Respiratory: Lungs clear, Normal breath sounds, No respiratory distress Cardiovascular: Regular rate Neurological: Normal speech Mental/Cognitive Status: Alert/Oriented X3, Normal for patient Cognitive Status: Within normal limits Plan Anesthesia Type: Total IV Consent for Procedure(s) Verified and Reviewed: Yes Code Status: Attempt Resuscitation ASA classification: 3-Severe systemic disease Is this case an emergency?: No
[2023-11-22] MEDS ORDERED: MIDAZOLAM 2 MG/2 ML VIAL ONE (12:18)
[2023-11-22] MEDS ORDERED: PROPOFOL 500 MG/50 ML 500 MG/50 ML VIAL ONE (12:21)
--- NOTE | 2023-11-22 14:14 | ANESTHESIA POST OP EVALUATION ---
Anesthesia Post Eval - Post Anesthesia Eval Vitals: Last Vital Signs Temp 36.2 C L 11/22/23 13:00 Pulse 59 L 11/22/23 13:00 Resp 16 11/22/23 13:00 BP 100/68 11/22/23 13:00 Pulse Ox 97 11/22/23 13:00 O2 Flow Rate CV Function Including HR & BP: Stable Pain Control: Satisfactory Nausea & Vomiting: Negative Mental Status: Baseline Respiratory Status: Airway Patent Hydration Status: Satisfactory Anesthesia Complications: None
[2023-11-22] MEDS ORDERED: DIATRIZOATE MEGLU/DIATRIZO SOD 30 ML BOTTLE PO ONE (14:44)
[2023-11-22 15:03] VITALS: BP 102/66; O2SAT 98
[2023-11-22] MEDS: DIATRIZOATE MEGLU/DIATRIZO SOD 30 ML BOTTLE PO ONE (15:36)
--- NOTE | 2023-11-22 15:49 | CT Report ---
PROCEDURE: Abdomen/Pelvis WO INDICATIONS: incomplete colonoscopy, no biopsy, scoped to 30cm TECHNIQUE: A CT scan of the abdomen and pelvis was performed without the use of intravenous contrast. Rectal con trast was administered via an existing rectal catheter. Images were recorded and evaluated at appropr iate window settings. Reformats: coronal and sagittal. For radiation dose reduction, the following wa s used: automated exposure control, adjustment of mA and/or kV according to patient size. COMPARISON: None. FINDINGS: Image quality: Diagnostic. Lower chest: Unremarkable. Liver: No contour-deforming mass. Gallbladder: Question faintly calcified gallstones. Biliary tree: No intrahepatic or extrahepatic dilation, accounting for age. Spleen: No splenomegaly. Pancreas: No pancreatic ductal dilation. Adrenals: No adrenal nodule. Kidneys and ureters: No hydronephrosis. No contour-deforming mass. Stomach, bowel and peritoneum: No gastric or small bowel dilation. No abnormal wall thickening. No pa thologic free fluid. The entirety of the colon is visualized. There are no polypoid lesions identifie d in the colon. No obstructing or constricting colonic lesions. Mild diverticulosis without evidence of acute diverticulitis. Lymph nodes: No central or retroperitoneal adenopathy. Vessels: No infrarenal aortic aneurysm. Reproductive organs: Unremarkable. Bladder: Bladder wall thickness is normal, accounting for underdistention. No calcified bladder stone s. Pelvic lymph nodes: No adenopathy by size criteria. Bones: No aggressive osseous abnormality. Other: No significant ventral or inguinal hernia. IMPRESSION: 1. No identification of a colonic polyp or obstructing or constricting colonic lesion. Mild diverticu losis. 2. Question faintly calcified gallstones Reviewed by: Phillip Hester MD on 11/22/2023 3:47 PM PDT Approved by: Phillip Hester MD on 11/22/2023 3:47 PM PDT Station ID: [id number]
== END 2023-11-22 10:02 | disposition home or self-care (01) ==
LOC: SDS 10:01
PROVIDERS: ATTEND Surgery
DX: Z12.11 Encounter for screening for malignant neoplasm of colon (principal); K57.30 Diverticulosis of large intestine without perforation or abscess without bleeding; Z80.0 Family history of malignant neoplasm of digestive organs; Z85.3 Personal history of malignant neoplasm of breast
CPT/HCPCS: 74176; G0104; J7120; Q9963